=== PATIENT | female | born 1965 | race Hispanic/Latino ===

== ENCOUNTER 2024-04-22 06:27 | Emergency (ER) | payer MEDICARE, MEDICAID ==
[2024-04-22] MEDS ORDERED: Morphine 4 MG/ML VIAL ONE (06:56)
[2024-04-22] MEDS ORDERED: Cyclobenzaprine 10 MG TAB ONE (06:57)
== END 2024-04-22 07:30 | disposition home or self-care (01) ==
LOC: CSHERS 06:27
DX: M54.41 Lumbago with sciatica, right side (principal)
CPT/HCPCS: 96372; 99283; J2272